=== PATIENT | male | born 1990 | race Two or more races ===

== ENCOUNTER 2024-10-08 15:55 | Emergency (ER) | payer MEDICAID ==
[~2024-10-08] VITALS: Ht 177.8 cm; Wt 97.9 kg
[2024-10-08 15:57] VITALS: TEMP 98.1
[2024-10-08] MEDS ORDERED: POLOS EACHEYE (16:57)
[2024-10-08 17:12] VITALS: BP 140/74; PULSE 86; RESP 16; O2SAT 99
== END 2024-10-08 17:08 | disposition home or self-care (01) ==
LOC: ER 15:56
DX: H16.133 Photokeratitis, bilateral (principal)
CPT/HCPCS: 99283

== ENCOUNTER 2024-11-17 16:32 | Emergency (ER) | payer MEDICAID ==
[~2024-11-17] VITALS: Ht 177.8 cm; Wt 122.9 kg
[2024-11-17 16:35] VITALS: BP 151/100; PULSE 72; RESP 18; O2SAT 99
[2024-11-17] MEDS ORDERED: DOXY-1 PO (17:22)
[2024-11-17] MEDS: DOXYCYCLINE 100MG CAPSULE PO STA (17:29)
[2024-11-17] MEDS: CefTRIAXone 500MG IM Kit w/LIDOcaine IM ONE (17:29)
[2024-11-17 17:37] VITALS: TEMP 97.9
== END 2024-11-17 17:39 | disposition home or self-care (01) ==
LOC: ER 16:33
DX: N34.2 Other urethritis (principal)
CPT/HCPCS: 36415; 87491; 87591; 96372; 99283; J0696